=== PATIENT | male | born 2005 | race African-American/Black ===

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

== ENCOUNTER 2025-06-19 00:38 | Emergency (ER) | payer OTHER, SELFPAY ==
[2025-06-19 00:47] VITALS: BP 105/41; PULSE 70; RESP 16; TEMP 36.6; O2SAT 97; BMI 25.8
--- NOTE | 2025-06-19 01:27 | ED.DENTAL ---
HPI - Dental/Oral General Chief complaint: Dental/Oral Stated complaint: dental pain Time Seen by Provider: 06/19/25 01:02 Source: patient Mode of arrival: ambulatory Limitations: no limitations History of Present Illness ED Provider: James OCONNOR HPI Narrative: The patient is a 19-year-old male presenting to the ED reporting at the beginning of the year he had a filling and root canal performed on his upper left rear molars. Patient reports he was doing well with no pain or discomfort until approximately 2 days ago when he began experiencing pain and swelling of the left cheek increased with eating. The patient denies associated fever/chills, nausea, vomiting or other systemic complaint. Patient denies any discharge from the gums. The patient reports taking ibuprofen with moderate effect. Related Data Previous Rx's ?Medication ?Instructions ?Recorded acetaminophen 500 mg capsule 1,000 mg (2 x 500 mg) PO .q8 PRN 06/19/25 fever or pain #30 caps amoxicillin 875 mg-potassium 1 tab PO BID #14 tabs 06/19/25 clavulanate 125 mg tablet ibuprofen 600 mg tablet 600 mg PO Q8H PRN fever or pain 06/19/25 #30 tabs Allergies Allergy/AdvReac Type Severity Reaction Status Date / Time clonidine (CLONIDINE) Allergy Unknown HIVES Verified 06/19/25 00:51 Review of Systems Review of Systems: Yes all other systems are reviewed and are negative PMFSH Social History Social History Smoked in Last 30 Days: No Use of substances other than those prescribed or required for medical reasons: No Advance Directives: No Advance Directives Information Provided: Yes Do you have a plan to hurt others: No Plan Physical Exam Vital Signs: Vital Signs: Last Vital Signs Temp 97.9 F 06/19/25 00:47 Pulse 70 06/19/25 00:47 Resp 16 06/19/25 00:47 BP 105/41 L 06/19/25 00:47 Pulse Ox 97 06/19/25 00:47 O2 Del Method Room Air 06/19/25 00:47 BMI result Body Mass Index 25.8 CONSTITUTIONAL: The patient appears non-toxic, well nourished and in no acute distress. Vital signs as documented. HEAD: Atraumatic, normocephalic. EYES: EOMs grossly intact, pupils equal, conjunctiva clear, no exudate. ENT: Nares patent, no discharge. Airway patent, no audible stridor, visible mucosa is pink and moist without noted lesions. There is no drainable abscess noted of the dental or buccal mucosa. There is mild swelling of the left cheek without overlying erythema or involvement of the orbit. NECK: trachea is midline, no obvious masses or gross abnormalities. CHEST: Symmetric movement, normal appearance. LUNGS: Non-labored work of breathing. CARDIAC: No evidence of hypoperfusion. ABDOMEN: Nondistended, no obvious injury. : Deferred. EXTREMITIES: Moves all extremities spontaneously without reported pain. No obvious injury or deformity noted. NEURO: Alert and oriented x3, CN II-XII appear grossly intact. Cerebellar Functioning grossly intact. Speech clear and appropriate. SKIN: Warm, dry, color appropriate. No rashes or lesions noted. Medications Administered Discontinued Medications Generic Name Dose Route Start Last Admin Trade Name Freq PRN Reason Stop Dose Admin Acetaminophen 975 mg 06/19/25 01:35 06/19/25 01:57 Acetaminophen 325 Mg Tablet PO 06/19/25 01:36 975 mg ONCE ONE Administration Amoxicillin/Clavulanate Potassium 875 mg 06/19/25 01:35 06/19/25 01:57 Amoxicillin/Potassium Clav 875 Mg Tablet PO 06/19/25 01:36 875 mg ONCE ONE Administration Discharge Plan Discharge Clinical Impression: Toothache Patient Disposition: Home, Self-Care Instructions: Toothache (ED) Additional Instructions: Thank you for choosing [facility]'s Emergency Department for your care today. At this time there is no indication for admission to the hospital or continued ED observation, and it is safe to discharge you home. Your pain today appears related to a dental infection, please take the antibiotic Augmentin as prescribed until it is finished. Even with improvement in your symptoms following the antibiotic it is extremely important that he follow up with a dentist for definitive care of your toothache. You should take alternating (staggered) doses of ibuprofen 600mg and Tylenol 1000mg every 4 hours as needed for any additional pain. Please also follow up with your primary care physician for re-evaluation, additional management of your symptoms, and continued preventative care. If you do not have a primary care physician, please call the [facility] at [phone] to establish a new primary care physician. While waiting to establish your new primary care physician, you can call our Walk[facility]in [facility] at [phone] for non-emergency needs. Please return to the emergency department if you develop a severe or sudden change in your symptoms, a fever over 100.4 that does not improve with Tylenol or Ibuprofen, recurrent vomiting, or any other new or worsening symptoms or concerns. Prescriptions: New ibuprofen 600 mg tablet 600 mg PO Q8H PRN (Reason: fever or pain) Qty: 30 0RF acetaminophen 500 mg capsule 1,000 mg PO .q8 PRN (Reason: fever or pain) Qty: 30 0RF amoxicillin-pot clavulanate 875-125 mg tablet 1 tab PO BID Qty: 14 0RF Stand Alone Forms: Work/School Release Print Language: Czech
--- NOTE | 2025-06-19 02:01 | PC.NURSE ---
pt medicated according to mar for reported 4/10 pain. pt awaiting discharge
--- OUTSIDE RECORDS SUMMARY | 2025-06-19 02:08 | XMS_ITS | Clinical Summary ---
Author Organization [facility] [address] [place] [address] [place] [phone] Phone Care Team Providers Care Directional Bore Operator Name Role Phone Naina Kearney MD Primary Care Provider [phone] Allergies Active Allergy Reactions Criticality Noted Date Comments Clonidine Hives 07/28/2013 Pollen Extracts 10/07/2022 Active Problems Problem Noted Date Diagnosed Date Acute tear medial meniscus 12/28/2021 Overview (11/15/2024): 12/23/2021 knee MRI, complex tear posterior horn medial meniscus. Mild effusion COVID-19 virus infection 07/19/2021 Overview (11/15/2024): 06/2021: mild symptoms Elevated TSH 07/22/2019 Overview (11/15/2024): 06/2019: with normal free t4, plan recheck in six months Knee pain 02/25/2018 Overview (11/15/2024): Question 6 mm osteochondral defect medial aspect talar dome. Ref to ortho. 04/03/18 Shrjustines R osteochondral lesion of his talus.discusses surgical and non-surgical options Full immobilization x 6wks/short leg walking cast /for knee strengthen quads/patellar stabilizing brace for activities F/u 3 weeks.04-10 left talar dome osteochondral lesion as well as patellofemoral arthropathy.chenges cast f/u 1m no PE Sleep disorder 02/28/2017 Overview (11/15/2024): Melatonin, declining Trazodone. Sleep average of 9-12 hours but during the day. 3-18 unchanged starting counseling/melatonin 5-6 mg po nightly 08/11 Spoek to MCPAP will start Atarax 10 mg may increase up to 50 mg q hs. 03/01/2019 Sleep study ordered Last Assessment & Plan: Melatonin, declining Trazodone. Sleep average of 9-12 hours but during the day. 3-18 unchanged starting counseling/melatonin 5-6 mg po nightly Oppositional defiant disorder 03/08/2016 Overview (11/15/2024): R/O ADHD 4-16 [facility] counseling/Xavier Fowler [address] [phone] Angry outbursts at home and school,aggression argues with adults 9-16 restarting counseling with Xavier velazquez wkly in school 3-18 restarting home therapy this month/Mamie TONG Update Fall 2015 Last Assessment & Plan: 3-18 restarting home therapy this month/Mamie Rodriguez 08/28/2009 Overview (11/15/2024): 9-16 prn proair worse with activity in wintertime 3-18 prn proair Last Assessment & Plan: 3-18 prn proair Encounters Date Type Department Care Team Description 06/03/2025 2:06 PM EDT - 06/03/2025 11:59 PM EDT Hospital Encounter [address] [phone] Acute pain of left knee Discharge Disposition: Home or Self Care 06/03/2025 1:30 PM EDT Office Visit Adult Medicine [address] [phone] Naina Kearney MD Acute pain of left knee (Primary Dx) 06/03/2025 Telephone Adult Medicine [address] [phone] Naina Kearney MD Knee Pain (/) from Last 3 Months Immunizations Name Administration Dates Next Due DTaP (Infanrix) 6wks to less than 7yo 03/02/2009 DTaP / Hib 02/10/2006 [id number] (Pentacel) 2mo to less than 5yo 04/29/2005,02/25/2005,2004 [id number] (Pediarix) 6 w ks to less than 7yo 04/29/2005,02/25/2005,2004 Hepatitis B Pediatric (Enger ix B; Recombivax HB) to less than 20 yo 2004 IPV Inactivated polio (Ipol) 6wks and older 03/02/2009 Influenza trivalent, with pr eservative (Fluzone; Afluria) 6mo and older 10/28/2006,11/06/2005 MMR, measles mumps and rubel la Live (Priorix; M-M-R II) 12mo and older 04/17/2010,02/10/2006 Meningococcal MCV4P 01/26/2021,11/27/2016 Pneumococcal Conjugate Vacci ne, 7 Valent 11/06/2005,04/29/2005,02/25/2005,12/27 Tdap Tetanus diptheria acell ular pertussis (Boostrix; Adacel) 7yo and older 11/27/2016 Varicella live (Varivax) 12m o and older 04/17/2010,11/06/2005 Surgical History Surgery Date Site/Laterality Comments KNEE SURGERY 01/2022 Right PROCEDURE: HISTORICAL KNEE SURGERY; COMMENT: ACL & meniscus repair Medical History Medical History Date Comments Unspecified asthma(493.90) DX:Un specified asthma(493.90) Contact dermatitis and other eczema, due to unspecified cause DX:Contact dermatitis and ot her eczema, due to unspecified cause Unspecified disturbance of conduct 07/20/2008 DX:Unspecified disturbance of conduct; COMMENT: Sleep problems GERD (gastroesophageal reflux disease) 12/01/2013 DX:GERD (gastroesophageal reflux disease); COMMENT: Suspect cause of chest pain -started on zantac 12/01/13 Chest pain at rest 12/01/2013 DX:Chest pain at rest; COMMENT: Suspect due to GERD; nurse noted irregular heart rate on exam 2x - nl ekg in ed at [facility] 11/29/13; ref pedi cardio 12/06/12 seen by cardiology, no cardiac etiology, no FU Wheezing 08/28/2009 DX:Wheezing Unspecified family circumstance 05/11/2015 DX:Unspecified family circumstance; COMMENT: 05-08 active 51A case for behavior problems/therapy recomended ODD (oppositional defiant disorder) 03/08/2016 DX:ODD (oppositional defiant disorder); COMMENT: 03-09 [facility] counseling/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 Sleep average of 9-12 hours but during the day. Family History Medical History Relation Name Comments Diabetes Maternal Grandfather Passed at 75 (pneumonia) Asthma Mother Alcohol/Drug Other 1 pg aunt etoh ab use 50s Other cancer Other 2 mggf Other: heart Paternal Grandmother Relation Name Status Comments Brother 1 Alive 1/2 sibling daniella heard Brother 2 Alive ronald phillips 2003 1/2 sib mothers child Father Alive 01/02/1974 ruben aldridge oil refinery operator/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 Maternal Grandfather Mother Alive 09/29/1975 ulysses saha paleontology teacher /living together 1998 Other 1 Other 2 Other 3 Paternal Grandmother Sister 1 Alive 07/07/1996, 1/2 sibling shital dickson /ffather child Sister 2 Alive 07/31/2002 alex snowden orquidea Sister 3 Alive zehra phillips 2005 1/2 sib mother child Social History Tobacco Use Types Packs/Day Years Used Date Smoking Tobacco: Never Smokeless Tobacco: Never Tobacco Cessation:Counseling Given: Not Answered Alcohol Use Standard Drinks/Week Comments Yes 0 (1 standard drink = 0.6 oz pur e alcohol) Sex and Gender Information Value Date Recorded Sex Assigned at Not on file Legal Sex Male 6:34 PM EST Gender Identity Not on file Sexual Orientation Not on file Obstetrics History Last Filed Vital Signs Vital Sign Reading Time Taken Comments Blood Pressure 112/68 06/03/2025 1:32 PM EDT Pulse 78 06/03/2025 1:32 PM EDT Temperature 36.6 C (97.8 F) 06/03/2025 1:32 PM EDT Respiratory Rate 16 06/03/2025 1:32 PM EDT Oxygen Saturation 98% 06/03/2025 1:32 PM EDT Inhaled Oxygen Concentration - - Weight 77.1 kg (170 lb) 06/03/2025 1:32 PM EDT Height 177.8 cm (5' 10 ) 06/03/2025 1:32 PM EDT Body Mass Index 24.39 06/03/2025 1:32 PM EDT Plan of Treatment Upcoming Encounters Date Type Department Care Team (Late st Contact Info) Description 10/13/2025 4:00 PM EST Office Visit Adult Medicine [address] [phone] Isiah Duncan PA [address] [place] [phone] Health Maintenance Due Date Last Done Comments HPV Vaccines (1 - Male 3-dose series) 2019 Meningococcal B Vaccine (1 of 2 - Standard) 2020 Social Influencers of Health Screening 11/02/2022 COVID-19 Vaccine (1 - season) 2024 Annual Well Child Visit (3-21 years old) 08/14/2024 08/14/2023, 01/26/2021, 02/18/2019, Additional history exists Depression Screening 11/24/2024 Influenza Vaccine (#1) 2025 10/28/2006, 2004 DTaP,Tdap,and Td Vaccines (7 - Td or Tdap) 11/27/2026 11/27/2016, 03/02/2009, 02/10/2006, Additional history exists Cholesterol Screening (Lipid Panel) 08/14/2028 08/14/2023 Hepatitis B Vaccines Completed 04/29/2005, 02/25/2005, 2004, Additional history exists Pneumococcal Vaccine: Pediatrics (0 to 5 Years) and At-Risk Patients (6 to 49 Years) Completed 11/06/2005, 04/29/2005, 02/25/2005, Additional history exists HIB Vaccines Completed 02/10/2006, 04/2005, 04/29/2005, Additional history exists IPV Vaccines Completed 03/02/2009, 04/2005, 04/29/2005, Additional history exists MMR Vaccines Completed 04/17/2010, 02/10/2006 Varicella Vaccines Completed 04/17/2010, 11/06/2005 Meningococcal ACWY Vaccine Completed 01/26/2021, HIV Screening Completed 08/14/2023 Hepatitis C Screening Completed 08/14/2023 Hepatitis A Vaccines Aged Out No long er eligible based on patient's age to complete this topic RSV Immunization Patients Under 20 months Aged Out No longer eligible based on patient's age to complete this topic Procedures Procedure Name Priority Date/Time Associated Diagnosis Comments XR KNEE 4+ VIEWS LEFT Routine 06/03/2025 2:16 PM EDT Acute pain of left knee EXTERNAL XRAY REPORT 06/03/2025 HEPATITIS C SCREENING Routine 08/14/2023 HIV SCREENING Routine 08/14/2023 LIPID PANEL Routine 08/14/2023 from Last 3 Months or Most Recently Relevant to Health Maintenance Results * XR Knee 4+ Views Left (06/03/2025 2:16 PM EDT) Anatomical Region Laterality Modality Lower Extremities, Knee Left Radiogra [facility] 06/03/2025 5:08 PM EDT Impressions 06/03/2025 5:10 PM EDT Normal exam. -------- FINAL REPORT -------- Dictated By: Diana Walsh Dictated Date: 06/03/2025 17:08 ET Assigned Physician: Diana Walsh Reviewed and Electronically Signed By: Diana Walsh Signed Date: 06/03/2025 17:10 ET Workstation ID: [id number] Transcribed By: Self Edit Transcribed Date: 06/03/2025 17:08 ET Narrative 06/03/2025 5:10 PM EDT LEFT KNEE VIEWS: 4. HISTORY: Left knee pain. FINDINGS: No fracture or malalignment is seen. Soft tissues are normal. The patellae are normally positioned on the Merchant view. No joint effusion is seen. Procedure Note Diana Walsh MD - 06/03/2025 LEFT KNEE VIEWS: 4. HISTORY: Left knee pain. FINDINGS: No fracture or malalignment is seen. Soft tissues are normal. The patellaeare normally positioned on the Merchant view. No joint effusion is seen. IMPRESSION: Normal exam. -------- FINAL REPORT -------- Dictated By: Diana Walsh Dictated Date: 06/03/2025 17:08 ET Assigned Physician: Diana Walsh Reviewed and Electronically Signed By: Diana Walsh Signed Date: 06/03/2025 17:10 ET Workstation ID: [id number] Transcribed By: Self Edit Transcribed Date: 06/03/2025 17:08 ET Naina Kearney MD IMG XR PROCEDURES Final Result * External Xray Report (06/03/2025) Anatomical Region Laterality Modality Radiographic Rosario ging Provider Mark Onbase IMG XR PROCEDURES Final Result * HIV Screening (08/14/2023) [facility] HIV Screening abstracted Historical Provider HEALTH MAINTENANCE Final Result * Hepatitis C Screening (08/14/2023) [facility] Hepatitis C Screening abstracted Historical Provider HEALTH MAINTENANCE Final Result * Lipid panel (08/14/2023) [facility] LDL/HDL Ratio 3 0 - 4 Triglycerides 42 0 - 150 mg/dL Cholesterol 141 0 - 200 mg/dL HDL 45 >=40 mg/dL LDL Cholesterol 88 0 - 100 mg/dL Blood Venous blood specimen / Unknown us Historical Provider LAB BLOOD ORDERABLES Yasmine l Result from Last 3 Months or Most Recently Relevant to Health Maintenance Insurance [facility] Care Teams Directional Bore Operator Relationship Specialty Start Date End Date Naina Kearney MD [address] [place] [id number] PCP - General 06/18/23
--- OUTSIDE RECORDS SUMMARY | 2025-06-19 02:08 | XMS_ITS | Clinical Summary ---
Author Organization [facility] Address [address] [place] [address] Care Team Providers Care Saturator Name Role Phone Pcp, No Primary Care Provider Unavailabl e Social History Tobacco Use Types Packs/Day Years Used Date Smoking Tobacco: Never Assessed Sex and Gender Information Value Date Recorded Sex Assigned at Not on file Legal Sex Male 6:41 PM EDT Gender Identity Not on file Sexual Orientation Not on file Plan of Treatment Health Maintenance Due Date Last Done Comments Hepatitis C Virus Screening 2004 HIV Screening 2017 HPV Vaccines (1 - Male 3-dos e series) 2019 DTaP/Tdap/Td Vaccines (1 - Tdap) 2023 Hepatitis B Vaccines (1 of 3 - 19+ 3-dose series) 2023 COVID-19 Vaccine (1 - 2023-2 5 season) 2024 Influenza Vaccine 06/24/2025 Pneumococcal Vaccine: Pediat shilo (0-5 Years) and At-Risk Patients (6 to 49 Years) Aged Out No longer eligible b ased on patient's age to complete this topic Insurance [employer] Care Teams Saturator Relationship Specialty Start Date End Date Pcp, No PCP - General General Medicine 07/02/24
--- OUTSIDE RECORDS SUMMARY | 2025-06-19 02:08 | XMS_ITS | Clinical Summary ---
Author Organization [facility] Address [address] [place] [address] Care Team Providers Care Carton Folder Name Role Phone Pcp, None Primary Care Provider Unavailabl e Allergies Active Allergy Reactions Criticality Noted Date Comments Clonidine 10/07/2022 per mom - pt was put on clonidine for short time when he was younger for sleep issues, she does not recall any reaction to clonidine but would like to keep the allergy listed in our records, since the PCP has it listed as an allergy in their recordshives Pollen Extracts 10/07/2022 Medications amoxicillin (Amoxil) 875 mg tablet Take 875 mg by mouth in the morning and at bedtime. 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 Disorder of knee 10/07/2022 Osteochondritis dissecans of talus 10/07/2022 Patellar instability 10/07/2022 Complete tear of anterior cruciate ligament of k nee 12/26/2021 Family History Medical History Relation Name Comments Clotting disorder Grandmother Heart disease Grandmother Lung cancer Grandmother Asthma Mother Relation Name Status Comments Grandmother Mother Social History Tobacco Use Types Packs/Day Years Used Date Smoking Tobacco: Never Smokeless Tobacco: Never Tobacco Cessation:Counseling Given: Not Answered Alcohol Use Standard Drinks/Week Comments Never 0 (1 standard drink = 0.6 oz pur e alcohol) Sex and Gender Information Value Date Recorded Sex Assigned at Male 09/02/2022 11:47 PM EDT Legal Sex Male 11:47 PM EDT Gender Identity Not on file Sexual Orientation Not on file Last Filed Vital Signs Vital Sign Reading Time Taken Comments Blood Pressure 155/86 02/21/2022 3:40 PM EDT Pulse - - Temperature - - Respiratory Rate - - Oxygen Saturation - - Inhaled Oxygen Concentration - - Weight 100 kg (221 lb) 01/27/2023 9:16 AM EST Height 174.8 cm (5' 8.8 ) 01/27/2023 9:16 AM EST Body Mass Index 32.83 01/27/2023 9:16 AM EST Plan of Treatment Not on file Insurance Care Teams Carton Folder Relationship Specialty Start Date End Date Pcp, None [address] [place] [address] PCP - General 01/27/23
--- OUTSIDE RECORDS SUMMARY | 2025-06-19 02:09 | XMS_ITS ---
Author Name [facility] Organization Unknown Care Team Organization Name Specialty Phone Email Start Date End Da te Rust 07/03/2024 Rust NO PCP Primary Care 07/03/2024 [facility] Elena Mejia Primary Care 03/31/20232023 [facility] Franklin Marie Primary Care 10/01/20222023
[2025-06-19 02:17] VITALS: BP 105/41; PULSE 70; RESP 16; TEMP 36.6; O2SAT 97
== END 2025-06-19 02:18 | disposition home or self-care (01) ==
PROVIDERS: Emergency Provider Emergency Medicine; PCP Internal Medicine
DX: K08.89 Other specified disorders of teeth and supporting structures (principal)
CPT/HCPCS: 99283; 99284

== ENCOUNTER 2025-09-12 22:12 | Emergency (ER) | payer OTHER, SELFPAY ==
[2025-09-12 22:16] VITALS: BP 139/65; PULSE 88; RESP 16; TEMP 37.3; O2SAT 100; BMI 25.1
--- NOTE | 2025-09-12 22:21 | ED_ITS ---
HPI - General Adult General Chief complaint: Upper Respiratory Symptoms Stated complaint: throat hurts when swallowing or talking < day Time Seen by Provider: 09/12/25 22:18 Source: patient Mode of arrival: ambulatory Limitations: no limitations History of Present Illness ED Provider: Dr. Perez HPI narrative: 19-year-old male presented hospital today for evaluation of left-sided neck numbness and pain. Patient stated that this happens when he is exercising and doing chest flat exercise. Patient is also complaining of posterior neck pain as well. He is not having pain when he is resting but only when he moves his neck. This is complain of some numbness on the left side of his neck. He does not have this numbness when he is resting. He is also complaining of nasal congestion sore throat. He has also has developed a cough. Related Data Previous Rx's ?Medication ?Instructions ?Recorded acetaminophen 500 mg capsule 1,000 mg (2 x 500 mg) PO .q8 PRN 06/19/25 fever or pain #30 caps amoxicillin 875 mg-potassium 1 tab PO BID #14 tabs clavulanate 125 mg tablet ibuprofen 600 mg tablet 600 mg PO Q8H PRN fever or p ain 06/19/25 #30 tabs acetaminophen 500 mg tablet 1,000 mg (2 x 500 mg) PO Q 6H PRN 09/12/25 pain #30 tabs cyclobenzaprine 5 mg tablet 5 mg PO TID PRN muscle spa sm #20 09/12/25 tabs ibuprofen 400 mg tablet 400 mg PO Q8H PRN pain #30 t abs 09/12/25 Allergies Allergy/AdvReac Type Severity Reaction Status Date / Time clonidine (CLONIDINE) Allergy Unknown HIVES Verified 09/12/25 22:18 Review of Systems Review of Systems: Pertinent review of systems as mentioned in HPI. All other system otherwise negative. [facility] Past Medical History [facility] Narrative: None Social History Social History Advance Directives: No Advance Directives Information Provided: Yes Do you have a plan to hurt others: No Plan Physical Exam ED Exam Exam: General: Pleasant, no distress, interacting appropriately Head: Normacephalic, atraumatic ENT: oral mucosa moist, neck supple, no tracheal deviation, erythema in the back of the oropharynx, there was also posterior neck tenderness on flexion of the neck, left-sided neck tenderness on rotation of the neck. Neurological: Awake and alert, no facial droop noted Skin: Warm and dry Psychiatric: Appropriate mood and thoughts Vital Signs: Vital Signs - 24 hr 09/12/25 22:16 Temperature 99.2 F Pulse Rate 88 Respiratory Rate 16 Blood Pressure 139/65 Pulse Oximetry 100 Oxygen Delivery Method Room Air BMI result Body Mass Index 25.1 Medications Administered Discontinued Medications Generic Name Dose Route Start Last Admin Trade Name Jennifer PRN Reason Stop Dose Admin Acetaminophen 975 mg 09/12/25 22:26 09/12/25 22:34 Acetaminophen 325 Mg Tablet PO 09/12/25 22:27 975 mg ONCE ONE Administration Ibuprofen 400 mg 09/12/25 22:26 09/12/25 22:33 Ibuprofen 400 Mg Tablet PO 09/12/25 22:27 400 mg ONCE ONE Administration Lidocaine 1 patch 09/12/25 22:26 09/12/25 22:33 Lidocaine 4 % Patch Adh..Patch TRANSDERMA 09/12/25 22:27 1 patch ONCE ONE Administration Protocol Medical Decision Making Medical Decision Making [facility] Narrative: 19-year-old male presented hospital today for evaluation of sore throat, neck pain for the past couple of days. Patient is complaining about left-sided neck numbness when lifting weights from the gym. Patient appears to have some sort of pharyngitis. With his symptoms of nasal congestion and cough. Suspect patient likely has a sinus infection versus upper respiratory infection. Patient may have numbness of the left neck due to pinching of the superficial noted from the sternocleidomastoid when he activated during his exercise routine. He is asymptomatic at this time appears to be stable. Do not appreciate any signs of neurological symptoms on evaluation. Patient is stable for discharge. Ibuprofen Tylenol will be given. I did offer lidocaine patch however patient has kindly refused. Viral swabs negative strep swab is negative. Patient will be discharged home. Referral to primary care doctor will be provided. Differential Diagnosis Differential Diagnoses: The differential diagnosis associated with the presentation includes Sore throat, viral infection, superficial nerve paresthesia. Lab Data [facility] Lab Attestation statement: I reviewed the patient's lab results. Labs: Lab Results 09/12/25 Range/Units 22:20 COVID-19 ([place]) Negative (Negative) COVID-19 Clin Com See Note Influenza Type A ([place]) Negative (Negative) Influenza Type B ([place]) Negative (Negative) Influenza A & B Note See Note S. pyogenes GrpA [place] Negative (Negative) Discharge Plan Discharge Clinical Impression: Neck pain Patient Disposition: Home, Self-Care Instructions: Neck Pain (ED) Prescriptions: New acetaminophen 500 mg tablet 1,000 mg PO Q6H PRN (Reason: pain) Qty: 30 0RF ibuprofen 400 mg tablet 400 mg PO Q8H PRN (Reason: pain) Qty: 30 0RF cyclobenzaprine 5 mg tablet 5 mg PO TID PRN (Reason: muscle spasm) Qty: 20 0RF No Action ibuprofen 600 mg tablet 600 mg PO Q8H PRN (Reason: fever or pain) Qty: 30 0RF acetaminophen 500 mg capsule 1,000 mg PO .q8 PRN (Reason: fever or pain) Qty: 30 0RF amoxicillin-pot clavulanate 875-125 mg tablet 1 tab PO BID Qty: 14 0RF [facility]: [facility], Elva [Provider Group, Internal Medicine] Stand Alone Forms: Work/School Release Discharge Date/Time: 09/12/25 23:10 Print Language: Albanian
[2025-09-12] MEDS: Lidocaine 4 % Patch ADH..PATCH 1 PATCH TRANSDERMA (22:33)
--- OUTSIDE RECORDS SUMMARY | 2025-09-12 22:33 | XMS_ITS | Clinical Summary ---
Author Organization [facility] Address [address] [place] [address] Care Team Providers Care Pulley Mortiser Operator Name Role Phone Pcp, No Primary Care [...] of 3 - 19+ 3-dose series) 2023 Influenza Vaccine 06/24/2025 COVID-19 Vaccine (1 - 2023-2 5 season) 2025 Pneumococcal Vaccine: Pediat shilo (0-5 Years) and At-Risk Patients (6 to 49 Years) Aged Out No longer eligible b ased on patient's age to complete this topic Insurance [employer] Care Teams Pulley Mortiser Operator Relationship Specialty Start Date End Date Pcp, No PCP - General General Medicine 07/02/24
[2025-09-12 22:58] LABS: COVID-19 Test Negative (Negative); IDNOW Serial# 08D9AD1C
[2025-09-12 22:59] LABS: IDNOW Serial# 55D5AD1C; IDNOW Serial# 6674DD1D; Influenza B2 Negative (Negative); Strep A Nucleic Acid Negative (Negative)
== END 2025-09-12 23:10 | disposition home or self-care (01) ==
PROVIDERS: Emergency Provider Student in an Organized Health Care Education/Training Program
DX: M54.2 Cervicalgia (principal); R20.0 Anesthesia of skin; R07.0 Pain in throat; R05.9 Cough, unspecified; R09.81 Nasal congestion
CPT/HCPCS: 87502; 87635; 87651; 99282; 99283

== ENCOUNTER 2025-09-14 01:21 | Emergency (ER) | payer OTHER, SELFPAY ==
[2025-09-14 01:27] VITALS: BP 140/68; PULSE 99; RESP 16; TEMP 36.8; O2SAT 100; BMI 25.1
--- OUTSIDE RECORDS SUMMARY | 2025-09-14 02:53 | XMS_ITS | Clinical Summary ---
Author Organization [facility] [address] [place] [address] [place] [phone] Phone Care Team Providers Care Directory Operator Name Role Phone Naina Kearney MD Primary Care Provider [phone] Allergies Active Allergy Reactions Criticality Noted Date [...] disorder 03/08/2016 Overview (11/15/2024): R/O ADHD 4-16 [facility] counseling/Xavier Fowler [address] [phone] Angry outbursts at home and school,aggression argues with adults 9-16 restarting counseling with Xavier velazquez wkly in school 3-18 restarting home therapy this month/Mamie Lorenzo IMO Update Fall 2015 Last Assessment & Plan: 3-18 restarting home therapy this month/Mamie Rodriguez 08/28/2009 Overview (11/15/2024): 9-16 prn proair worse with activity in wintertime 3-18 prn proair Last Assessment & Plan: 3-18 prn proair Immunizations Immunization Administration Dates Next Due DTaP (Infanrix) 6wks to less than 7yo 03/02/2009 DTaP / Hib 02/10/2006 [id number] (Pentacel) 2mo to less than 5yo 04/29/2005,02/25/2005,2004 [id number] (Pediarix) 6 w ks to less than [...] 2x - nl ekg in ed at [facility] 11/29/13; ref pedi cardio 12/06/12 seen by cardiology, no cardiac etiology, no FU Wheezing 08/28/2009 DX:Wheezing Unspecified family circumstance 05/11/2015 DX:Unspecified family circumstance; COMMENT: 6- active 50A case for behavior problems/therapy recomended ODD (oppositional defiant disorder) 03/08/2016 DX:ODD (oppositional defiant disorder); COMMENT: 16 [facility] counseling/Xavier Fowler [employer]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 Angry outbursts at home and school,aggression argues with adults Disturbance of conduct 07/20/2008 DX:Distur bance of conduct; COMMENT: Sleep problems IMO update Difficulty with family 05/11/2015 DX:Diffic ulty with family; COMMENT: 6-15 active 51A case for behavior problems/therapy recommended -16 active case closing -16,11-16,-17 active 51A case IMO update Sleep disorder 02/28/2017 DX:Sleep disorde r; [...] sibling daniella heard Brother 2 Alive ronald jacqueline 2003 1/2 sib mothers child Father Alive 01/02/1974 ruben luis carlos 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/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 Maternal Grandfather Mother Alive 09/29/1975 ulysses saha plant 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 /living together 1998 Other 1 Other 2 Other 3 Paternal Grandmother Sister 1 Alive 07/07/1996, 1/2 sibling shital dickson /ffather child Sister 2 Alive 07/31/2002 alex heard Sister 3 Alive zehra jacqueline 2005 1/2 sib mother child Social History [...] 4:00 PM EST Office Visit Adult Medicine [address] [phone] Isiah Duncan PA [address] [place] [id number] Health Maintenance Due Date Last Done Comments HPV Vaccines (1 - Male 3-dose series) 2019 Meningococcal B Vaccine (1 of 2 - Standard) 2020 Social Influencers of Health Screening 11/02/2022 Annual Well Child Visit (3-21 years old) 08/14/2024 08/14/2023, 01/26/2021, 02/18/2019, Additional history exists Depression Screening 11/24/2024 COVID-19 Vaccine ( - season) 2025 Influenza Vaccine (#1) 2025 10/28/2006, 2004 DTaP,Tdap,and Td Vaccines (7 - Td or Tdap) 11/27/2026 11/27/2016, 03/02/2009, 02/10/2006, Additional history exists Cholesterol Screening (Lipid Panel) 08/14/2028 08/14/2023 RSV Immunization Adult Patients (1 - 1-dose 75+ series) 2079 Hepatitis B Vaccines Completed 04/29/2005, 02/25/2005, 2004, [...] Procedure Name Priority Date/Time Associated Diagnosis Comments HEPATITIS C SCREENING Routine 08/14/2023 HIV SCREENING Routine 08/14/2023 LIPID PANEL Routine 08/14/2023 from Last 3 Months or Most Recently Relevant to Health Maintenance Results * HIV Screening (08/14/2023) HIV Screening abstracted Historical Provider HEALTH MAINTENANCE Final Result * Hepatitis C Screening (08/14/2023) Hepatitis C Screening abstracted [facility] Provider HEALTH MAINTENANCE Final Result * Lipid panel (08/14/2023) LDL/HDL Ratio 3 0 - 4 Triglycerides 42 0 - 150 mg/dL Cholesterol 141 0 - 200 mg/dL HDL 45 >=40 mg/dL LDL Cholesterol 88 0 - 100 mg/dL Blood Venous blood specimen / Unknown Historical Provider LAB BLOOD ORDERABLES Yasmine l Result from Last 3 Months or Most Recently Relevant to Health Maintenance Insurance [facility] Care Teams Directory Operator Relationship Specialty Start Date End Date Naina Kearney MD NPI: [id number] [place] [id number] PCP - General 06/18/23
--- OUTSIDE RECORDS SUMMARY | 2025-09-14 02:53 | XMS_ITS | Clinical Summary ---
Author Organization [facility] Address [address] [id number] Care Team Providers Care Night Supervisor Name Role Phone Pcp, None Primary Care [...] Treatment Not on file Insurance Care Teams Night Supervisor Relationship Specialty Start Date End Date Pcp, None [address] [place] [address] PCP - General 01/27/23
--- OUTSIDE RECORDS SUMMARY | 2025-09-14 02:53 | XMS_ITS | Clinical Summary ---
Author Organization [facility] Address [address] [place] [address] Care Team Providers Care Histology Assistant Name Role Phone Pcp, No Primary Care [...] this topic Insurance [employer] Care Teams Histology Assistant Relationship Specialty Start Date End Date Pcp, No PCP - General General Medicine 07/02/24
--- NOTE | 2025-09-14 03:10 | PC.NURSE ---
Pt requesting to leave and get his DC paperwork, this RN resumed care from previous RN who was going to speak with provider about discharge.
--- NOTE | 2025-09-14 03:11 | PC.NURSE ---
Pt refusing swabs at this time
--- NOTE | 2025-09-14 03:13 | ED_ITS ---
HPI - General Adult General Chief complaint: General Medical Stated complaint: sore throat Time Seen by Provider: 09/14/25 02:52 Related Data Previous Rx's ?Medication ?Instructions ?Recorded acetaminophen 500 mg capsule 1,000 mg (2 x 500 mg) PO .q8 PRN 06/19/25 fever or pain #30 caps amoxicillin 875 mg-potassium 1 tab PO BID #14 tabs clavulanate 125 mg tablet ibuprofen 600 mg tablet 600 mg PO Q8H PRN fever or p ain 06/19/25 #30 tabs acetaminophen 500 mg tablet 1,000 mg (2 x 500 mg) PO Q 6H PRN 09/12/25 pain #30 tabs cyclobenzaprine 5 mg tablet 5 mg PO TID PRN muscle spa sm #20 09/12/25 tabs ibuprofen 400 mg tablet 400 mg PO Q8H PRN pain #30 t abs 09/12/25 Allergies Allergy/AdvReac Type Severity Reaction Status Date / Time clonidine (CLONIDINE) Allergy Unknown HIVES Verified 09/14/25 01:32 [facility] Social History Social History Advance Directives: No Advance Directives Information Provided: Yes Physical Exam ED Vital Signs: Vital Signs - 24 hr 09/14/25 01:27 Temperature 98.2 F Pulse Rate 99 Respiratory Rate 16 Blood Pressure 140/68 H Pulse Oximetry 100 Oxygen Delivery Method Room Air BMI result Body Mass Index 25.1 Discharge Plan Discharge Clinical Impression: Sore throat Patient Disposition: Left W/O Completing Treatment Prescriptions: No Action ibuprofen 600 mg tablet 600 mg PO Q8H PRN (Reason: fever or pain) Qty: 30 0RF acetaminophen 500 mg capsule 1,000 mg PO .q8 PRN (Reason: fever or pain) Qty: 30 0RF amoxicillin-pot clavulanate 875-125 mg tablet 1 tab PO BID Qty: 14 0RF acetaminophen 500 mg tablet 1,000 mg PO Q6H PRN (Reason: pain) Qty: 30 0RF ibuprofen 400 mg tablet 400 mg PO Q8H PRN (Reason: pain) Qty: 30 0RF cyclobenzaprine 5 mg tablet 5 mg PO TID PRN (Reason: muscle spasm) Qty: 20 0RF Discharge Date/Time: 09/14/25 03:33
== END 2025-09-14 03:33 | disposition left against medical advice (07) ==
PROVIDERS: Emergency Provider Emergency Medicine
DX: J02.9 Acute pharyngitis, unspecified (principal)
CPT/HCPCS: 99281

== ENCOUNTER 2025-10-04 20:15 | Emergency (ER) | payer OTHER, SELFPAY ==
--- NOTE | ~2025-10-04 | XR_ITS ---
CLINICAL HISTORY: pain swelling to right hand 4th digit post injury 3 views right 4th finger Comparison: None Findings: No fractures or dislocations. No significant arthritic change. No erosions. No radiopaque foreign body. Impression: 1. Normal right 4th finger This document has been electronically signed by: Chuy Keene MD on 10/04/2025 20:51:25
[2025-10-04 20:26] VITALS: BP 128/56; PULSE 69; RESP 16; TEMP 36.7; O2SAT 97; BMI 25.7
--- OUTSIDE RECORDS SUMMARY | 2025-10-04 22:13 | XMS_ITS | Clinical Summary ---
Author Organization [facility] Address [address] [place] [address] Care Team Providers Care Spiritual Counselor Name Role Phone Pcp, No Primary Care [...] this topic Insurance [employer] Care Teams Spiritual Counselor Relationship Specialty Start Date End Date Pcp, No PCP - General General Medicine 07/02/24
--- NOTE | 2025-10-04 23:13 | ED.EXTPRO ---
HPI - Extremity Problem General Chief complaint: Extremity Injury, Upper Stated complaint: Hand inj Time Seen by Provider: 10/04/25 23:01 Source: patient, RN notes reviewed and old records reviewed Mode of arrival: ambulatory Limitations: no limitations History of Present Illness ED Provider: Ember PENA Narrative: 19-year-old male presents for evaluation of a right 4th finger injury. Around 7:00 p.m. he had a small shelf fall onto his hand. He has pain to the distal half of the right 4th finger. Use able to bend the finger. His pain is intermittent. Denies any other injuries Related Data Previous Rx's ?Medication ?Instructions ?Recorded acetaminophen 500 mg capsule 1,000 mg (2 x 500 mg) PO .q8 PRN 06/19/25 fever or pain #30 caps amoxicillin 875 mg-potassium 1 tab PO BID #14 tabs 06/19/25 clavulanate 125 mg tablet ibuprofen 600 mg tablet 600 mg PO Q8H PRN fever or pain 06/19/25 #30 tabs acetaminophen 500 mg tablet 1,000 mg (2 x 500 mg) PO Q6H PRN 09/12/25 pain #30 tabs cyclobenzaprine 5 mg tablet 5 mg PO TID PRN muscle spasm #20 09/12/25 tabs ibuprofen 400 mg tablet 400 mg PO Q8H PRN pain #30 tabs 09/12/25 Allergies Allergy/AdvReac Type Severity Reaction Status Date / Time clonidine (CLONIDINE) Allergy Unknown HIVES Verified 10/04/25 20:27 Review of Systems Constitutional: Constitutional: Denies body ache(s), Denies chills and Denies fever(s) Eyes: Eyes: Denies blurry vision Cardiovascular: Cardiovascular: Denies chest pain Musculoskeletal: Musculoskeletal: Reports arthralgias, Reports joint swelling and Reports limited range of motion Psychiatric: Psychiatric: Denies anxiety PMFSH Social History Social History Advance Directives: No Advance Directives Information Provided: No Physical Exam Vital Signs: Vital Signs: Last Vital Signs Temp 98.1 F 10/04/25 20:26 Pulse 69 10/04/25 20:26 Resp 16 10/04/25 20:26 BP 128/56 L 10/04/25 20:26 Pulse Ox 97 10/04/25 20:26 O2 Del Method Room Air 10/04/25 20:26 BMI result Body Mass Index 25.7 Const: General: healthy appearing, comfortable, no acute distress, alert and awake Nutritional Appearance: well nourished Orientation/consciousness: patient oriented x3 HEENT: Head: Yes normocephalic and Yes atraumatic Eyes: Eyelids: Yes eyelids normal Conjunctivae: conjunctivae normal Sclerae: sclerae normal Corneas: corneas normal Pupils: Equal, round and reactive pupils present EOM: EOMs intact bilaterally Resp: Effort & Inspection: normal respiratory effort, no audible wheezes and not labored Skin: General skin exam: no rashes or lesions noted and elasticity normal Neuro: General: patient oriented x3 Cranial nerves: Yes Equal, round and reactive pupils present and Yes Bilaterally intact EOM present Cognition (Neuro): normal cognition Extrem: Other: There is a small abrasion to the dorsal surface of the right 4th finger just distal to the D IP joint. No active wheezing. The patient has full range of motion with flexion-extension of the right 4th MCP, PIP and D IP joints. No subungual hematoma Medical Decision Making Medical Decision Making MDM Narrative: 19-year-old male presents for evaluation of right 4th finger injury. His x-ray was negative for fracture, he is able to flex and extend with full range of motion, no evidence of flexor or extensor tendon injury. The patient be discharged with symptomatic care only Differential Diagnosis Differential Diagnoses: The differential diagnosis associated with the presentation includes Contusion Fracture Tendon injury Finger dislocation Independent Interpretation I performed an independent interpretation of an: Plain X-Ray Interpretation: No fracture noted to the right 4th finger Radiology Impression Discussion of test interpretation with radiology: I have reviewed the radiologist's reading. Radiologist Impression: Findings: No fractures or dislocations. No significant arthritic change. No erosions. No radiopaque foreign body. Impression: 1. Normal right 4th finger This document has been electronically signed by: Chuy Keene MD on 10/04/2025 20:51:25 Discharge Plan Discharge Clinical Impression: Contusion of finger Patient Disposition: Home, Self-Care Instructions: Contusion in Adults (ED) Additional Instructions: Your x-ray did not show any fracture. I recommend ice, ibuprofen and Tylenol for your pain. Follow up with your primary doctor, return for new or worsening symptoms Prescriptions: No Action ibuprofen 600 mg tablet 600 mg PO Q8H PRN (Reason: fever or pain) Qty: 30 0RF acetaminophen 500 mg capsule 1,000 mg PO .q8 PRN (Reason: fever or pain) Qty: 30 0RF amoxicillin-pot clavulanate 875-125 mg tablet 1 tab PO BID Qty: 14 0RF acetaminophen 500 mg tablet 1,000 mg PO Q6H PRN (Reason: pain) Qty: 30 0RF ibuprofen 400 mg tablet 400 mg PO Q8H PRN (Reason: pain) Qty: 30 0RF cyclobenzaprine 5 mg tablet 5 mg PO TID PRN (Reason: muscle spasm) Qty: 20 0RF Interventions: ED Discharge Assessment Last Done: 10/04/25 23:18 Print Language: Kazakh
[2025-10-04 23:18] VITALS: BP 128/56; PULSE 69; RESP 16; TEMP 36.7; O2SAT 97
== END 2025-10-04 23:19 | disposition home or self-care (01) ==
PROVIDERS: Emergency Provider Emergency Medicine
DX: S60.051A Contusion of right little finger without damage to nail, initial encounter (principal); W20.8XXA Other cause of strike by thrown, projected or falling object, initial encounter; Y93.9 Activity, unspecified; Y92.9 Unspecified place or not applicable
CPT/HCPCS: 73140; 99282; 99283

== ENCOUNTER → 2025-10-04 20:35 | Outpatient (BNV) | payer OTHER, SELFPAY | PROVIDERS: Visit Provider Radiology Diagnostic Radiology | DX: M79.644 Pain in right finger(s) (principal); R22.31 Localized swelling, mass and lump, right upper limb | CPT/HCPCS: 73140 ==

== ENCOUNTER 2025-11-17 02:04 | Emergency (ER) | payer OTHER, SELFPAY ==
--- NOTE | 2025-11-17 | ECG_ITS ---
Test Reason : CP Blood Pressure : */* mmHG Vent. Rate : 90 BPM Atrial Rate : 90 BPM P-R Int : 140 ms QRS Dur : 84 ms QT Int : 314 ms P-R-T Axes : 74 87 45 degrees QTcB Int : 384 ms Normal sinus rhythm Right atrial enlargement Borderline ECG No previous ECGs available Referred By: Generic ED Physician Electronically Signed By: TELMA FRAGA MD
[2025-11-17 02:17] VITALS: BP 150/65; PULSE 85; RESP 15; TEMP 37.7; O2SAT 100; BMI 24.7
[2025-11-17 02:47] LABS: Hematocrit 44.6 % (42.0-52.0); Hemoglobin 15.1 g/dl (14.0-18.0); Imm Gran Abs Auto 0.02 X10*3/uL (0.00-0.03); Imm Gran Pct Auto 0.3 % (0.0-0.4); Lymphocytes Absolute Auto 0.9 X10*3/uL (1.2-4.9); MANUAL DIFF FLAG NO; Mean Corpuscular HGB Conc 33.9 g/dl (31.0-36.0); Mean Corpuscular Hemoglobin 31.3 pg (27.0-33.0); Mean Corpuscular Volume 92.5 fL (80.0-98.0); NRBC Abs Auto 0.000 X10*3/uL (0.0-0.012); NRBC Pct Auto 0.0 /100WBC (0.0-0.2); Platelet Count 158 X10*3/uL (160-400); Red Blood Count 4.82 X10*6/uL (4.60-5.80); White Blood Count 7.5 X10*3/uL (4.8-10.8)
[2025-11-17 02:54] LABS: IDNOW Serial# 58CA691E; Strep A Nucleic Acid Negative (Negative)
[2025-11-17 03:03] LABS: Alanine Aminotransferase 12 U/L (0-40); Albumin Level 4.9 g/dL (3.5-5.0); Alkaline Phosphatase 57 U/L (39-117); Anion Gap 14 (12-20); Aspartate Amino Transferase 25 U/L (5-37); Blood Urea Nitrogen 7 mg/dL (9-16); Calcium 9.6 mg/dL (8.4-10.2); Carbon Dioxide 25 mmol/L (22-29); Chloride 106 mmol/L (96-108); Creatinine Clr Calc Pharmacy 135.5; Estimated Glomerular Filt Rate > 60; Lipase 17 U/L (8-78); Magnesium 1.5 mg/dL (1.6-2.6); Potassium 4.1 mmol/L (3.3-5.1); Sodium 141 mmol/L (135-145); Total Protein 7.0 g/dL (6.5-8.0)
[2025-11-17 03:12] LABS: Troponin-I High Sensitivity < 2.7 ng/L (<3.5-35.0)
[2025-11-17 03:23] LABS: Resp Syncy Virus RNA Qual PCR NEGATIVE (Negative); SARS COV2 PCR INHOUSE NEGATIVE (Negative)
--- OUTSIDE RECORDS SUMMARY | 2025-11-17 04:06 | XMS_ITS | Clinical Summary ---
Author Organization [facility] Address [address] [place] [address] Care Team Providers Care Band Cutter Name Role Phone Pcp, None Primary Care [...] Treatment Not on file Insurance Care Teams Band Cutter Relationship Specialty Start Date End Date Pcp, None [address] [place] [address] PCP - General 01/27/23
--- OUTSIDE RECORDS SUMMARY | 2025-11-17 04:06 | XMS_ITS | Clinical Summary ---
Author Organization [facility] [address] [place] [address] [place] [phone] Phone Care Team Providers Care Direct Of Real Estate Name Role Phone Naina Kearney MD Primary Care Provider [phone] Allergies Active Allergy Reactions Criticality Noted Date [...] aspect talar dome. Ref to ortho. 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 Fowler [address] [phone] Angry outbursts at home and school,aggression argues [...] than 7yo 03/02/2009 DTaP / Hib 02/10/2006 [id number] (Pentacel) 2mo to less than 5yo 04/29/2005,02/25/2005,2004 [id number] (Pediarix) 6 w ks to less than [...] 2x - nl ekg in ed at [facility] 11/29/13; ref pedi cardio 12/06/12 seen by cardiology, no cardiac etiology, no FU Wheezing 08/28/2009 DX:Wheezing Unspecified family circumstance 05/11/2015 DX:Unspecified family circumstance; COMMENT: 6- active 51A case for behavior problems/therapy recomended ODD (oppositional defiant disorder) 03/08/2016 DX:ODD (oppositional defiant disorder); COMMENT: [address] 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 Angry outbursts at home and school,aggression argues [...] child Father Alive 01/02/1974 ruben luis carlos rotary shear operator/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 Maternal Grandfather Mother Alive 09/29/1975 ulysses saha exceptional children's teacher /living together 1998 Other 1 Other 2 Other 3 Paternal Grandmother Sister 1 Alive 07/07/1996, 1/2 sibling shital dickson /ffather child Sister 2 Alive 07/31/2002 alex heard Sister 3 Alive zehra jacqueline 2004 1/2 sib mother child Social History Tobacco [...] 06/03/2025 1:32 PM EDT Plan of Treatment Health Maintenance Due Date Last Done Comments HPV Vaccines (1 - Male 3-dose series) 2019 Meningococcal B Vaccine (1 of 2 - Standard) 2020 Social Influencers of Health Screening 11/02/2022 Annual Well Child Visit (3-21 years old) 08/14/2024 08/14/2023, 01/26/2021, 02/18/2019, Additional history exists Depression Screening 11/24/2024 COVID-19 Vaccine (1 - season) 2025 Influenza Vaccine (#1) 2025 [...] Procedure Name Priority Date/Time Associated Diagnosis Comments HM HEPATITIS C SCREENING Routine 08/14/2023 HM HIV SCREENING Routine 08/14/2023 LIPID PANEL Routine 08/14/2023 from Last 3 Months or Most Recently Relevant to Health Maintenance Results * HIV Screening (08/14/2023) HIV Screening abstracted Historical Provider HEALTH MAINTENANCE Final Result * Hepatitis C Screening (08/14/2023) HM Hepatitis C Screening abstracted Historical Provider HEALTH [...] Most Recently Relevant to Health Maintenance Insurance [facility] [place] [id number] Care Teams Direct Of Real Estate Relationship Specialty Start Date End Date Naina Kearney MD [address] [place] [phone] PCP - General 06/18/23
--- NOTE | 2025-11-17 04:20 | ED.NAVMDI ---
HPI - Nausea/Vomiting/Diarrhea General Chief complaint: Upper Respiratory Symptoms Stated complaint: n/v/d + CP + back pain Time Seen by Provider: 11/17/25 03:07 Source: patient Mode of arrival: ambulatory Limitations: no limitations History of Present Illness ED Provider: Dr. Eleanor Gonzales HPI Narrative: Previously healthy 20 year old male presenting with flu like symptoms ongoing for about 3 days. He describes nonbilious, nonbloody emesis, nonbloody diarrhea, chest tightness, dry cough, body aches and chills. Unclear if anyone else is sick in the home. Last dose of Tylenol was around 4:00 p.m. yesterday. Related Data Previous Rx's ?Medication ?Instructions ?Recorded acetaminophen 500 mg capsule 1,000 mg (2 x 500 mg) PO .q8 PRN 06/19/25 fever or pain #30 caps amoxicillin 875 mg-potassium 1 tab PO BID #14 tabs 06/19/25 clavulanate 125 mg tablet ibuprofen 600 mg tablet 600 mg PO Q8H PRN fever or pain 06/19/25 #30 tabs acetaminophen 500 mg tablet 1,000 mg (2 x 500 mg) PO Q6H PRN 09/12/25 pain #30 tabs cyclobenzaprine 5 mg tablet 5 mg PO TID PRN muscle spasm #20 09/12/25 tabs ibuprofen 400 mg tablet 400 mg PO Q8H PRN pain #30 tabs 09/12/25 ondansetron 4 mg disintegrating 4 mg PO Q8H PRN nausea and 11/17/25 tablet vomiting #10 tabs Allergies Allergy/AdvReac Type Severity Reaction Status Date / Time clonidine (CLONIDINE) Allergy Unknown HIVES Verified 11/17/25 02:21 Review of Systems Review of Systems: as per HPI, full review of systems performed and negative but for the above mentioned pertinent positives and negatives. [facility] Social History Social History Smoked in Last 30 Days: No Use of substances other than those prescribed or required for medical reasons: No Advance Directives: No Advance Directives Information Provided: Yes Do you have a plan to hurt others: No Plan Physical Exam Exam: Exam: GENERAL: Ill-Appearing, appears uncomfortable. SKIN: Normal skin color for ethnicity, warm, dry, no rashes noted. HEENT:? Normocephalic, atraumatic, no stridor, dry mucous membranes, dentition intact, EOMI. NECK: Soft, supple, full ROM, midline structures nontender, no step-offs, no deformities, no lymphadenopathy. CHEST: Heart regular tachycardia, no murmurs, symmetric chest rise and fall. PULMONARY: Clear to auscultation bilaterally, diminished at the bases, no labored breathing, no wheezes/rhales/rhonchi. ABDOMINAL: Soft, nondistended, nontender, positive bowel sounds in all quadrants. : Deferred. MUSCULOSKELETAL: Normal tone, full range of motion, no deformities, no peripheral edema. NEURO: Alert and oriented x3, CN II through XII intact, equal strength and sensation bilateral upper and lower extremities, no focal neurologic deficits.? PSYCHIATRIC: Flat affect, fluid speech, good eye contact and appropriate demeanor. Vital Signs: Vital Signs: Last Vital Signs Temp 98.5 F 11/17/25 04:33 Pulse 85 11/17/25 04:33 Resp 18 11/17/25 04:33 BP 112/58 L 11/17/25 04:33 Pulse Ox 97 11/17/25 04:33 O2 Del Method Room Air 11/17/25 04:33 BMI result Body Mass Index 24.7 Medications Administered Discontinued Medications Generic Name Dose Route Start Last Admin Trade Name Freq PRN Reason Stop Dose Admin Ibuprofen 600 mg 11/17/25 04:19 11/17/25 04:28 Ibuprofen 600 Mg Tablet PO 11/17/25 04:20 600 mg ONCE ONE Administration Ondansetron HCl 4 mg 11/17/25 04:19 11/17/25 04:28 Ondansetron Odt 4 Mg Tab.Rapdis TRANSLINGU 11/17/25 04:20 4 mg ONCE ONE Administration Medical Decision Making Medical Decision Making MDM Narrative: Patient presents today with flu-like symptoms. Differential diagnosis includes influenza, coronavirus, pneumonia, upper respiratory infection, among others. Most importantly, this patient is not in any acute respiratory distress. They have normal oxygen levels at room air. I have discussed medication and other home therapies that will help the patient and have discussed strict return precautions. Instructed that symptoms may worsen and the patient might need re-evaluation or even hospitalization in the future, but did not show signs of this at the time of discharge. Differential Diagnosis Differential Diagnoses: The differential diagnosis associated with the presentation includes (as above) Admission/Observation Consideration of admission/observation: Escalation of care including admission/observation considered Lab Data MDM Lab Attestation statement: I reviewed the patient's lab results. 11/17/25 02:45 11/17/25 02:45 Labs: Lab Results 11/17/25 Range/Units 02:45 WBC 7.5 (4.8-10.8) X10*3/uL RBC 4.82 (4.60-5.80) X10*6/uL Hgb 15.1 (14.0-18.0) g/dl Hct 44.6 (42.0-52.0) % MCV 92.5 (80.0-98.0) fL MCH 31.3 (27.0-33.0) pg MCHC 33.9 (31.0-36.0) g/dl RDW 12.8 (11.0-16.0) % Plt Count 158 L (160-400) X10*3/uL MPV 10.4 (9.4-12.4) fL Immature Gran % (Auto) 0.3 (0.0-0.4) % Neut % (Auto) 72.6 (45-73) % Lymph % (Auto) 12.5 L (20-40) % [place] % (Auto) 13.8 H (2-11) % Eos % (Auto) 0.1 (0-4) % Baso % (Auto) 0.7 (0-2) % Lymph # (Auto) 0.9 L (1.2-4.9) X10*3/uL [place] # (Auto) 1.0 (0.1-1.2) X10*3/uL Eos # (Auto) 0.0 (0.0-0.4) X10*3/uL Baso # (Auto) 0.1 (0.0-0.2) X10*3/uL Abs Immat Gran (auto) 0.02 (0.00-0.03) X10*3/uL Absolute Neuts (auto) 5.4 (2.0-8.3) x10*3/uL Absolute Nucleated RBC 0.000 (0.0-0.012) X10*3/uL Nucleated RBC % (auto) 0.0 (0.0-0.2) /100WBC Sodium 141 (135-145) mmol/L Potassium 4.1 (3.3-5.1) mmol/L Chloride 106 (96-108) mmol/L Carbon Dioxide 25 (22-29) mmol/L Anion Gap 14 (12-20) BUN 7 L (9-16) mg/dL Creatinine 0.89 (0.5-1.4) mg/dL Estim Creat Clear Calc 135.5 Estimated GFR > 60 Random Glucose 99 (60-115) mg/dL Calcium 9.6 (8.4-10.2) mg/dL Magnesium 1.5 L (1.6-2.6) mg/dL Total Bilirubin 0.9 (0.0-1.0) mg/dL AST 25 (5-37) U/L ALT 12 (0-40) U/L Alkaline Phosphatase 57 (39-117) U/L Troponin I High Sens < 2.7 (<3.5-35.0) ng/L Total Protein 7.0 (6.5-8.0) g/dL Albumin 4.9 (3.5-5.0) g/dL Lipase 17 (8-78) U/L Influenza Type A (PCR) POSITIVE A (Negative) Influenza Type B (PCR) NEGATIVE (Negative) RSV RNA Qual (PCR) NEGATIVE (Negative) SARS-CoV-2 RNA (RT-PCR) NEGATIVE (Negative) S. pyogenes GrpA [place] Negative (Negative) Prescription Management I considered prescription management with: Pain Medication and Antiviral Social Determinants Patient?s care significantly limited by Social Determinants of Health including: Other Social Determinant of Health Discharge Plan Discharge Clinical Impression: Influenza A, Nausea, vomiting and diarrhea Patient Disposition: Home, Self-Care Instructions: Influenza (ED) Additional Instructions: Keep your mask on if you have to go into public for any reason while you are ill. Use Tylenol and Motrin around the clock for fever and body aches. Use Zofran (ondansetron) as needed for nausea. Return to the emergency department with any new or worsening symptoms including: Worsening shortness of breath, continued fevers despite medications, inability to tolerate food or drink. Call 911 with any medical emergency. Prescriptions: New ondansetron 4 mg tablet,disintegrating 4 mg PO Q8H PRN (Reason: nausea and vomiting) Qty: 10 0RF No Action ibuprofen 600 mg tablet 600 mg PO Q8H PRN (Reason: fever or pain) Qty: 30 0RF acetaminophen 500 mg capsule 1,000 mg PO .q8 PRN (Reason: fever or pain) Qty: 30 0RF amoxicillin-pot clavulanate 875-125 mg tablet 1 tab PO BID Qty: 14 0RF acetaminophen 500 mg tablet 1,000 mg PO Q6H PRN (Reason: pain) Qty: 30 0RF ibuprofen 400 mg tablet 400 mg PO Q8H PRN (Reason: pain) Qty: 30 0RF cyclobenzaprine 5 mg tablet 5 mg PO TID PRN (Reason: muscle spasm) Qty: 20 0RF Stand Alone Forms: Work/School Release Interventions: ED Discharge Assessment Last Done: 11/17/25 04:33 Discharge Date/Time: 11/17/25 04:34 Print Language: Italian
[2025-11-17 04:27] VITALS: BP 112/58; PULSE 91; RESP 18; O2SAT 99
[2025-11-17 04:28] VITALS: BP 112/58; PULSE 85; RESP 18; TEMP 36.9; O2SAT 97
--- NOTE | 2025-11-17 04:32 | PC.NURSE ---
Medicated by primary nurse Lashon, reviewed discharge instructions with pt. pt verbalized understanding.
[2025-11-17 04:33] VITALS: BP 112/58; PULSE 85; RESP 18; TEMP 36.9; O2SAT 97
== END 2025-11-17 04:34 | disposition home or self-care (01) ==
PROVIDERS: Emergency Provider Emergency Medicine
DX: J10.1 Influenza due to other identified influenza virus with other respiratory manifestations (principal); R11.2 Nausea with vomiting, unspecified; R07.89 Other chest pain; M54.50 Low back pain, unspecified; M79.10 Myalgia, unspecified site; R05.9 Cough, unspecified; R19.7 Diarrhea, unspecified; Z03.818 Encounter for observation for suspected exposure to other biological agents ruled out
CPT/HCPCS: 36415; 80053; 83690; 83735; 84484; 85025; 87637; 87651; 93005; 99284; 99285

== ENCOUNTER → 2025-11-17 02:13 | Outpatient (BNV) | payer SELFPAY | PROVIDERS: Emergency Provider Emergency Medicine; Visit Provider Internal Medicine Cardiovascular Disease | DX: I51.7 Cardiomegaly (principal) | CPT/HCPCS: 93010 ==